=== PATIENT | male | born 1975 | race Caucasian/White ===

== ENCOUNTER 2020-09-22 09:46 | Emergency (ER) | payer SELFPAY ==
[2020-09-22] MEDS ORDERED: Sodium Chloride 0.9% 10 ML Syringe FLUSH PRN (10:03)
[2020-09-22] MEDS ORDERED: Sodium Chloride 0.9% 1,000 ML IV ONE (10:06)
[2020-09-22] MEDS ORDERED: Labetalol 20 MG/4 ML Syringe IVPUSH ONE ×3 (10:16→12:46)
--- NOTE | 2020-09-22 10:16 | EDM.PDOC ---
ED HPI GENERAL MEDICAL PROBLEM - General Stated Complaint: STROKE CODE Time Seen by Provider: 09/22/20 10:01 Source of Information: Reports: Patient, EMS - History of Present Illness INITIAL COMMENTS - FREE TEXT/NARRATIVE: Damian is a 45 y/o male who is brought to the ER by EMS after he awoke with parathesias to his left arm and left side of his face. Reports he felt fine at midnight when he went to bed and did not have any sx at that time. He does live alone. Denies any previous sx like this in the past. He does not currently have a PCP. - Related Data Allergies Allergy/AdvReac Type Severity Reaction Status Date / Time paroxetine [From Paxil] Allergy Intermediate Hives Verified 09/22/20 11:13 Penicillins Allergy Intermediate Other Verified 09/22/20 11:13 Past Medical History Cardiovascular History: Reports: Other (See Below) (Varicose Veins) Review of Systems - Review of Systems Review Of Systems: See Below Constitutional: Reports: No Symptoms Eyes: Reports: No Symptoms Ears: Reports: No Symptoms Nose: Reports: No Symptoms Mouth/Throat: Reports: No Symptoms Respiratory: Reports: No Symptoms Cardiovascular: Reports: No Symptoms GI/Abdominal: Reports: No Symptoms Genitourinary: Reports: No Symptoms Musculoskeletal: Reports: No Symptoms Skin: Reports: No Symptoms Neurological: Reports: Numbness (left arm/face), Tingling (left arm/face) Psychiatric: Reports: No Symptoms ED EXAM, GENERAL - Physical Exam Exam: See Below General Appearance: Alert, WD/WN, No Apparent Distress (Obese adult male) Eye Exam: Bilateral Eye: PERRL Ears: Normal External Exam, Normal Canal, Hearing Grossly Normal Nose: Normal Inspection, Normal Mucosa Throat/Mouth: Normal Inspection, Normal Lips, Normal Voice, Other (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) Head: Atraumatic, Normocephalic Neck: Normal Inspection, Supple, Non-Tender Respiratory/Chest: No Respiratory Distress, Lungs Clear, Chest Non-Tender Cardiovascular: Normal Peripheral Pulses, Regular Rate, Rhythm, No Edema GI/Abdominal: Normal Bowel Sounds, Soft, Non-Tender, No Organomegaly (Male) Exam: Deferred Rectal (Males) Exam: Deferred Back Exam: Normal Inspection Extremities: Normal Inspection, Normal Range of Motion, Non-Tender, Normal Capillary Refill Neurological: Alert, Oriented, CN II-XII Intact, Normal Cognition, Other (NIHS Score=1) Psychiatric: Normal Affect, Normal Mood Skin Exam: Warm, Dry, Intact, Normal Color Lymphatic: No Adenopathy #1 Interpretation EKG Date: 09/22/20 Time: 09:56 Rhythm: NSR Rate (Beats/Min): 88 [place]: Normal P-Wave: Present QRS: Normal ST-T: Normal QT: Normal Course - Vital Signs Text/Narrative:: 1001 The patient was seen by the DOPEMAN after return from CT. Labs, EKG, and IV ordered. NIHSS on arrival=1 due to parathesias in left arm/face. 1015 BP noted to be 239/119 on arrival with a recheck of 189/96 and Labetalol 10mg IVP was ordered. 1030 BP remains elevated, Labetalol 10mg IVP repeated. Zafar Pope contacted. 1050 Case reviewed with Stroke Neurologist, Dr Hayes who advises CTA Head/Neck. 1245 CTA Head/Neck results reviewed, note nonspecific irregularity involving A1 segment of the right anterior cerebral artery. CT sent to [place] and Niko contacted to discuss with Stroke Neurologist. BP floating up again to 198/97 and Labetalol 20mg IV given. Patient also very anxious awaiting results, Lorazepam 1mg IVP given. 1347 Reviewed results of the CTA Head/Neck with Dr Hayes by phone. He advises permissive HTN and if BP >= 220mmHg/120mmHg to place on antihypertensives and lower BP 10-15%/day. Also recommend ASA & Plavix x 21 days and starting on Lipitor 80mg qd. Will need a nonurgent MRI and ECHO. 1420 Discussed case with Bakari Cho CNP at [facility] here in [place] who will see the patient today at 4 pm. [facility] will get him started on meds and then set up further diagnostic testing as recommended by the Neurologist. Discussed the plan of care with the patient and his father. He was given discharge instructions and left the ER in stable condition. He reported that his left arm/face sensation changes had subsided. Will still have Dr Hayes review CTA Head/Neck when able and change plan of care as needed. - Orders/Labs/Meds Orders: Active Orders 24 hr Category Date Time Status EKG Documentation Completion [RC] STAT Care 09/22/20 10:04 Active NPO Now [Nothing per Oral Now Diet] [DIET] Diet 09/22/20 Lunch Ordered Ang Head [CT] Stat Exams 09/22/20 10:51 Taken Sodium Chloride 0.9% [Normal Saline] 1,000 ml Med 09/22/20 10:06 Active IV ONETIME Sodium Chloride 0.9% [Saline Flush] Med 09/22/20 10:03 Active 10 ml FLUSH ASDIRECTED PRN Saline Lock Insert [OM.PC] Stat Oth 09/22/20 10:04 Ordered Medication Orders Sodium Chloride (Normal Saline) 1,000 mls @ 50 mls/hr IV ONETIME ONE Stop: 09/23/20 06:05 Sodium Chloride (Sodium Chloride 0.9% 10 Ml Syringe) 10 ml FLUSH ASDIRECTED PRN PRN Reason: Keep Vein Open Labs: Laboratory Tests 09/22/20 09/22/20 09/22/20 Range/Units 10:00 10:03 10:03 WBC 4.1 (4.0-10.0) x10^3/uL RBC 4.40 L (4.5-6.0) x10^6/uL Hgb 14.3 (14.0-18.0) g/dL Hct 40.7 (40.0-52.0) % MCV 92.5 (78.0-93.0) fL MCH 32.5 H (26.0-32.0) pg MCHC 35.1 (32.0-36.0) g/dL RDW Coeff of Rc 14.0 (10.0-15.0) % Plt Count 125 L (130-400) x10^3/uL Neut % (Auto) 60.4 (50.0-80.0) % Lymph % (Auto) 26.0 (25.0-50.0) % [place] % (Auto) 9.5 (2.0-11.0) % Eos % (Auto) 3.6 (0.0-4.0) % Baso % (Auto) 0.5 (0.2-1.2) % PT (9.9-12.5) SEC INR (2.0-3.5) APTT (25.6-32.8) SEC Sodium 138 (136-145) mmol/L Potassium 3.9 (3.5-5.1) mmol/L Chloride 104 (98-107) mmol/L Carbon Dioxide 30 (21-32) mmol/L Anion Gap 7.9 (5-15) mmol/L BUN 15 (7-18) mg/dL Creatinine 1.5 H (0.70-1.30) mg/dL Est Cr Clr Drug Dosing TNP Estimated GFR (MDRD) 51 Glucose 135 H (70-99) mg/dL POC Glucose 129 H (70-99) mg/dL Calcium 8.4 L (8.5-10.1) mg/dL Corrected Calcium 8.9 (8.5-10.1) mg/dL Magnesium 1.7 L (1.8-2.4) mg/dL Total Bilirubin 0.5 (0.2-1.0) mg/dL AST 64 H (15-37) U/L ALT 85 H (16-63) U/L Alkaline Phosphatase 97 (46-116) U/L Troponin I High Sens 12 (<=76) ng/L Total Protein 7.5 (6.4-8.2) g/dL Albumin 3.4 (3.4-5.0) g/dL Globulin 4.1 Albumin/Globulin Ratio 0.83 /04/04 Range/Units 10:03 WBC (4.0-10.0) x10^3/uL RBC (4.5-6.0) x10^6/uL Hgb (14.0-18.0) g/dL Hct (40.0-52.0) % MCV (78.0-93.0) fL MCH (26.0-32.0) pg MCHC (32.0-36.0) g/dL RDW Coeff of Rc (10.0-15.0) % Plt Count (130-400) x10^3/uL Neut % (Auto) (50.0-80.0) % Lymph % (Auto) (25.0-50.0) % [place] % (Auto) (2.0-11.0) % Eos % (Auto) (0.0-4.0) % Baso % (Auto) (0.2-1.2) % PT 12.1 (9.9-12.5) SEC INR 1.1 L (2.0-3.5) APTT 23.4 L (25.6-32.8) SEC Sodium (136-145) mmol/L Potassium (3.5-5.1) mmol/L Chloride (98-107) mmol/L Carbon Dioxide (21-32) mmol/L Anion Gap (5-15) mmol/L BUN (7-18) mg/dL Creatinine (0.70-1.30) mg/dL Est Cr Clr Drug Dosing Estimated GFR (MDRD) Glucose (70-99) mg/dL POC Glucose (70-99) mg/dL Calcium (8.5-10.1) mg/dL Corrected Calcium (8.5-10.1) mg/dL Magnesium (1.8-2.4) mg/dL Total Bilirubin (0.2-1.0) mg/dL AST (15-37) U/L ALT (16-63) U/L Alkaline Phosphatase (46-116) U/L Troponin I High Sens (<=76) ng/L Total Protein (6.4-8.2) g/dL Albumin (3.4-5.0) g/dL Globulin Albumin/Globulin Ratio Meds: Medications Generic Name Dose Route Start Last Admin Trade Name Freq PRN Reason Stop Dose Admin Sodium Chloride 1,000 mls @ 50 mls/hr 09/22/20 10:06 Normal Saline IV 09/23/20 06:05 ONETIME ONE Sodium Chloride 10 ml 09/22/20 10:03 Sodium Chloride 0.9% 10 Ml Syringe FLUSH ASDIRECTED PRN Keep Vein Open Discontinued Medications Generic Name Dose Route Start Last Admin Trade Name Freq PRN Reason Stop Dose Admin Hydralazine HCl 10 mg 09/22/20 13:43 Hydralazine 20 Mg/Ml Sdv IVPUSH 09/22/20 13:44 ONETIME ONE Iopamidol 100 ml 09/22/20 11:09 09/22/20 12:15 Iopamidol 612 Mg/Ml 100 Ml Bottle IVPUSH 09/22/20 11:10 100 ml ONETIME ONE Administration Labetalol HCl 10 mg 09/22/20 10:16 Labetalol 20 Mg/4 Ml Syringe IVPUSH 09/22/20 10:17 NOW ONE Protocol Labetalol HCl 10 mg 09/22/20 10:33 Labetalol 20 Mg/4 Ml Syringe IVPUSH 09/22/20 10:34 NOW ONE Protocol Labetalol HCl Confirm 09/22/20 12:47 Labetalol 20 Mg/4 Ml Syringe Administered 09/22/20 12:48 Dose 20 mg .ROUTE .STK-MED ONE Labetalol HCl 20 mg 09/22/20 12:46 Labetalol 20 Mg/4 Ml Syringe IVPUSH 09/22/20 12:47 NOW ONE Protocol Lorazepam 1 mg 09/22/20 12:46 Lorazepam 2 Mg/Ml Sdv IVPUSH 09/22/20 12:47 STAT ONE - Radiology Interpretation Free Text/Narrative:: CT Head WO=no acute findings (See final report) CTA Head/Neck=Nonspecific irregularity involving the A1 segment of hte right anterior cerebral artery, consider MRI, (See final report) CT Results Date: 09/22/20 Departure - Departure Time of Disposition: 14:24 Disposition: Home, Self-Care 01 Condition: Good Clinical Impression: Left face and left arm tingling, Elevated LFTs Hypertension Qualifiers: Hypertension type: unspecified Qualified Code(s): I10 - Essential (primary) hypertension - Discharge Information *PRESCRIPTION DRUG MONITORING PROGRAM REVIEWED*: Not Applicable *COPY OF PRESCRIPTION DRUG MONITORING REPORT IN PATIENT LEON: Not Applicable Instructions: Hypertension, Adult, Stroke Prevention Referrals: Bakari Cho NP [Nurse Practitioner] - Additional Instructions: -Go to the [facility] today at 4pm to be seen by Bakari Cho CNP. -PCP will start you on meds as recommended by Neurologist - My Orders Last 24 Hours: My Active Orders 09/22/20 10:03 Sodium Chloride 0.9% [Saline Flush] 10 ml FLUSH ASDIRECTED PRN 09/22/20 10:04 EKG Documentation Completion [RC] STAT Saline Lock Insert [OM.PC] Stat 09/22/20 10:06 Sodium Chloride 0.9% [Normal Saline] 1,000 ml IV ONETIME 09/22/20 10:51 Ang Head [CT] Stat 09/22/20 Lunch NPO Now [Nothing per Oral Now Diet] [DIET] - Assessment/Plan Last 24 Hours: My Active Orders 09/22/20 10:03 Sodium Chloride 0.9% [Saline Flush] 10 ml FLUSH ASDIRECTED PRN 09/22/20 10:04 EKG Documentation Completion [RC] STAT Saline Lock Insert [OM.PC] Stat 09/22/20 10:06 Sodium Chloride 0.9% [Normal Saline] 1,000 ml IV ONETIME 09/22/20 10:51 Ang Head [CT] Stat 09/22/20 Lunch NPO Now [Nothing per Oral Now Diet] [DIET] Assessment:: 1)Left Arm/Face Tingling 2)Hypertension, New Dx, not currently treated 3)Elevated LFTs
[2020-09-22 10:26] LABS: PTT,PARTIAL THROMBOPLSTIN TIME 23.4 SEC (25.6-32.8)
--- NOTE | 2020-09-22 10:27 | CT ---
[id number] CT/CT Head Stroke Protocol EXAM: NONCONTRAST HEAD CT INDICATION: STROKE CODE. COMPARISON: None. DISCUSSION: The ventricles and sulci are normal in size and configuration. The mazariegos and white matter are normal in attenuation. No mass effect or midline shift. No acute hemorrhage or extra-axial fluid collection. No acute territorial infarct is identified. A limited look at the orbits and paranasal sinuses is unremarkable. Results called at 10:20 AM 09/22/2020. IMPRESSION: 1. Negative exam. Quique Timmons MD 09/22/20 [id number] Thank you for allowing us to participate in the care of your patient.
[2020-09-22 10:30] LABS: CHLORIDE,CL 104 mmol/L (98-107); SODIUM,NA 138 mmol/L (136-145)
[2020-09-22 10:31] LABS: ANION GAP 7.9 mmol/L (5-15)
[2020-09-22] MEDS ORDERED: Iopamidol 612 MG/ML 100 ML Bottle IVPUSH ONE (11:09)
--- NOTE | 2020-09-22 12:35 | CT ---
[id number] CT/CTA Head Neck EXAM: CT angiogram head and neck INDICATION: RULE OUT CVA. COMPARISON: Head CT same date. DISCUSSION: Aortic arch: The partially imaged aortic arch is normal in caliber with a conventional branching morphology. Right carotid artery: Normal in caliber. No significant stenosis or other abnormality. Left carotid artery: Normal in caliber. No significant stenosis or other abnormality. Right vertebral artery: Normal in caliber. No significant stenosis or other abnormality. Left vertebral artery: Normal in caliber. No significant stenosis or other abnormality. Basilar artery: Normal in caliber. No significant stenosis or other abnormality. [place]: Artifact limits evaluation of the intracranial vessels. There is irregularity of the A1 segment of the right anterior cerebral artery of uncertain significance. Brain MRI and MRI may be useful for further characterization. No vessel cut off, aneurysm or other findings are identified. Dural sinuses, jugular veins and cerebral veins: Limited evaluation of the cerebral veins, dural sinuses and jugular veins is unremarkable. Brain parenchyma: Unremarkable. The neck soft tissues: Unremarkable. Osseous structures: Unremarkable. IMPRESSION: 1. Nonspecific irregularity involving the A1 segment of the right anterior cerebral artery. Consider brain MRI and MRA for further evaluation. No definite acute findings. Quique Timmons MD 09/22/20 [id number] Thank you for allowing us to participate in the care of your patient.
[2020-09-22] MEDS ORDERED: LORazepam 2 MG/ML SDV IVPUSH ONE (12:46)
[2020-09-22] MEDS ORDERED: Labetalol 20 MG/4 ML Syringe ONE (12:47)
[2020-09-22] MEDS ORDERED: hydrALAZINE 20 MG/ML SDV IVPUSH ONE (13:43)
== END 2020-09-22 14:35 | disposition home or self-care (01) ==
LOC: VM.ED 09:46
DX: R20.2 Paresthesia of skin (principal); I10 Essential (primary) hypertension; R79.89 Other specified abnormal findings of blood chemistry; Z88.0 Allergy status to penicillin; Z88.8 Allergy status to other drugs, medicaments and biological substances
CPT/HCPCS: 36415; 70450; 70496; 70498; 80053; 82947; 83735; 84484; 85025; 85610; 85730; 93005; 93010; 99284; 99284-25; Q9967

== ENCOUNTER 2023-11-24 11:33 | Emergency (ER) | payer OTHER ==
[2023-11-24] MEDS ORDERED: Sodium Chloride 0.9% 10 ML Syringe FLUSH PRN (11:40)
[2023-11-24 11:54] LABS: BASOPHILS PERCENT AUTO 0.4 % (0.2-1.2); EOSINOPHILS ABSOLUTE AUTO 0.1 x10^3/uL (0.0-0.5); EOSINOPHILS PERCENT AUTO 2.7 % (0.0-4.0); HEMATOCRIT 27.8 % (40.0-52.0); LYMPHOCYTES ABSOLUTE AUTO 0.7 x10^3/uL (1.0-4.8); LYMPHOCYTES PERCENT AUTO 14.5 % (25.0-50.0); MEAN CORPUSCULAR HEMOGLOBIN 31.8 pg (26.0-32.0); MEAN CORPUSCULAR HGB CONC 32.4 g/dL (32.0-36.0); MEAN CORPUSCULAR VOLUME 98.2 fL (78.0-93.0); MONOCYTES ABSOLUTE AUTO 0.4 x10^3/uL (0.0-0.8); MONOCYTES PERCENT AUTO 8.9 % (2.0-11.0); NEUTROPHILS ABSOLUTE AUTO 3.3 x10^3/uL (1.8-7.7); NEUTROPHILS PERCENT AUTO 73.5 % (50.0-80.0); PLATELET COUNT,PLT 82 x10^3/uL (130-400); RED BLOOD CELL COUNT 2.83 x10^6/uL (4.5-6.0); WHITE BLOOD CELL COUNT,WBC 4.5 x10^3/uL (4.0-10.0)
[2023-11-24 12:11] LABS: INR 1.2 (0.9-1.1); PROTHROMBIN TIME 12.2 SEC (8.9-11.5); PTT,PARTIAL THROMBOPLSTIN TIME 24.1 SEC (21.9-33.8)
[2023-11-24 12:16] LABS: ALANINE AMINOTRANSFERASE,ALT 57 U/L (16-63); ALBUMIN 3.2 g/dL (3.4-5.0); ALKALINE PHOSPHATASE 91 U/L (46-116); ANION GAP 13.4 mmol/L (5-15); ASPARTATE AMNIOTRANSFERASE,AST 92 U/L (15-37); BILIRUBIN TOTAL 1.4 mg/dL (0.2-1.0); BLOOD UREA NITROGEN,BUN 12 mg/dL (7-18); C-REACTIVE PROTEIN < 0.50 mg/dL (<=0.50); CALCIUM 8.9 mg/dL (8.5-10.1); CARBON DIOXIDE,CO2 26 mmol/L (21-32); CHLORIDE,CL 105 mmol/L (98-107); ESTIMATED GFR 24 mL/min (>=60); GLUCOSE RANDOM 132 mg/dL (70-99); MAGNESIUM 1.6 mg/dL (1.8-2.4); POTASSIUM,K 3.4 mmol/L (3.5-5.1); PROTEIN TOTAL,TP 7.8 g/dL (6.4-8.2); SODIUM,NA 141 mmol/L (136-145)
[2023-11-24 12:18] LABS: CREATININE 3.1 mg/dL (0.70-1.30)
[2023-11-24] MEDS: Lactated Ringers 1,000 ML IV ONE (12:40)
[2023-11-24] MEDS: Magnesium Sulfate/Water 2 GM in Premix Bag 1 BAG IV ONE (12:40)
== END 2023-11-24 14:28 | disposition home or self-care (01) ==
LOC: VM.ED 11:33
DX: G45.9 Transient cerebral ischemic attack, unspecified (principal); I10 Essential (primary) hypertension; E78.00 Pure hypercholesterolemia, unspecified; Z88.0 Allergy status to penicillin; Z88.8 Allergy status to other drugs, medicaments and biological substances; Z79.899 Other long term (current) drug therapy; Z87.891 Personal history of nicotine dependence
CPT/HCPCS: 70450; 80053; 83735; 84484; 85025; 85610; 85730; 86140; 93005; 93010; 96361; 96365; 99284; J3475; J7120